=== PATIENT | female | born 1985 | race Two or more races ===

== ENCOUNTER 2022-09-27 19:32 | Emergency (ER) | payer OTHER ==
[~2022-09-27] VITALS: Ht 152.4 cm; Wt 77.1 kg
--- NOTE | 2022-09-27 20:06 | NUR ---
[place] C/O RIGHT FOOT PAIN DROPPED LAPTOP ON IT X 1 WEEK. PT A/OX4. TOLERATING R/A WELL WITH NO RESP DISTRESS. SAFETY MEASURES IN PLACE.
[2022-09-27] MEDS ORDERED: ACETAMINOPHEN 325 MG TABLET ONE (20:27)
[2022-09-27] MEDS: ACETAMINOPHEN 325 MG TABLET PO ONE (20:28)
--- NOTE | 2022-09-27 20:38 | NUR ---
[employer] HELPER AT PT'S BEDSIDE
[2022-09-27] MEDS ORDERED: IBUP-1953 PO (21:14)
--- NOTE | 2022-09-27 21:19 | NUR ---
Patient discharged to home in stable condition. Written and verbal after care instructions given. Patient verbalizes understanding of instruction.
[2022-09-27 21:21] VITALS: BP 129/78
== END 2022-09-27 21:21 | disposition home or self-care (01) ==
LOC: ER 19:36
DX: S90.31XA Contusion of right foot, initial encounter (principal); Z60.2 Problems related to living alone; W20.8XXA Other cause of strike by thrown, projected or falling object, initial encounter; Y93.89 Activity, other specified; Y92.89 Other specified places as the place of occurrence of the external cause; Y99.8 Other external cause status
CPT/HCPCS: 73630-TC